=== PATIENT | female | born 1965 | race Native Hawaiian/Other Pacific Islander ===

== ENCOUNTER 2016-08-30 11:14 | Emergency (ER) | payer BC ==
[~2016-08-30] VITALS: Ht 167.6 cm; Wt 93.0 kg
[~2016-08-30 11:14] MED LIST: CIPRO500 MG PO; LISITAB PO; SIMV20TA2 PO
[2016-08-30] MEDS ORDERED: LISI20TA31 OR (11:44)
[2016-08-30] MEDS ORDERED: HYDR-3182 PO (11:45)
[2016-08-30] MEDS ORDERED: SIMV40TA57 (11:45)
[2016-08-30] MEDS ORDERED: ALPR0.5T24 PO (11:46)
[2016-08-30 12:15] LABS: PLATELET COUNT 318 K/uL (152-353)
[2016-08-30 12:32] LABS: PARTIAL THROMBOPLASTIN TIME 24.9 SECONDS (24.5-33.6)
[2016-08-30 13:10] VITALS: BP 178/97; TEMP 98
== END 2016-08-30 13:15 | disposition home or self-care (01) ==
LOC: ED 11:14
DX: R51 Headache (principal); M79.605 Pain in left leg; M79.2 Neuralgia and neuritis, unspecified
CPT/HCPCS: 36415; 85027; 85610; 85730; 99283

== ENCOUNTER 2017-03-08 07:42 | Outpatient (CLI) | payer BC ==
[~2017-03-08 07:42] MED LIST changes: +ALPR0.5T24 PO; +HYDR-3182 PO; +LISI20TA31 OR; +SIMV40TA57
== END 2017-03-08 08:45 | disposition home or self-care (01) ==
LOC: MAMMO 07:42
DX: Z12.31 Encounter for screening mammogram for malignant neoplasm of breast (principal)

== ENCOUNTER 2018-03-25 08:25 | Outpatient (CLI) | payer BC | END 2018-03-25 23:00 | disposition home or self-care (01) | LOC: MAMMO 08:25 | DX: Z12.31 Encounter for screening mammogram for malignant neoplasm of breast (principal) ==

== ENCOUNTER 2018-10-15 09:50 | Outpatient (CLI) | payer BC | END 2018-10-15 20:11 | disposition home or self-care (01) | LOC: US 09:50 | DX: R10.9 Unspecified abdominal pain (principal) ==

== ENCOUNTER 2019-03-31 08:28 | Outpatient (CLI) | payer BC | END 2019-03-31 20:08 | disposition home or self-care (01) | LOC: MAMMO 08:28 | DX: Z12.31 Encounter for screening mammogram for malignant neoplasm of breast (principal) ==

== ENCOUNTER 2019-09-01 08:20 | Outpatient (CLI) | payer BC | END 2019-09-01 19:13 | disposition home or self-care (01) | LOC: US 08:20 | DX: N60.11 Diffuse cystic mastopathy of right breast (principal) ==

== ENCOUNTER 2020-04-07 08:32 | Outpatient (CLI) | payer BC | END 2020-04-07 22:12 | disposition home or self-care (01) | LOC: MAMMO 08:32 | DX: N63.10 Unspecified lump in the right breast, unspecified quadrant (principal) | CPT/HCPCS: G0279 ==

== ENCOUNTER 2021-04-26 15:15 | Outpatient (CLI) | payer BC | END 2021-04-26 22:38 | disposition home or self-care (01) | LOC: MAMMO 15:15 | PROVIDERS: ATTEND Obstetrics & Gynecology | DX: Z12.31 Encounter for screening mammogram for malignant neoplasm of breast (principal) ==

== ENCOUNTER 2022-05-01 08:10 | Outpatient (CLI) | payer BC | END 2022-05-01 19:13 | disposition home or self-care (01) | LOC: MAMMO 08:10 | PROVIDERS: ATTEND Obstetrics & Gynecology | DX: Z12.31 Encounter for screening mammogram for malignant neoplasm of breast (principal); N63.10 Unspecified lump in the right breast, unspecified quadrant; N64.59 Other signs and symptoms in breast ==

== ENCOUNTER 2022-12-21 10:51 | Outpatient (CLI) | payer BC | END 2022-12-21 19:12 | disposition home or self-care (01) | LOC: US 10:51 | PROVIDERS: ATTEND Obstetrics & Gynecology | DX: D24.1 Benign neoplasm of right breast (principal) ==

== ENCOUNTER 2023-02-07 08:18 | Outpatient (CLI) | payer BC | END 2023-02-07 19:05 | disposition home or self-care (01) | LOC: US 08:18 | PROVIDERS: ATTEND Internal Medicine | DX: R53.83 Other fatigue (principal) ==

== ENCOUNTER 2023-02-12 10:55 | Outpatient (CLI) | payer BC | END 2023-02-12 19:16 | disposition home or self-care (01) | LOC: CT 10:55 | PROVIDERS: ATTEND Internal Medicine | DX: N30.81 Other cystitis with hematuria (principal); R06.09 Other forms of dyspnea; M54.17 Radiculopathy, lumbosacral region ==